=== PATIENT | female | born 1960 ===

== ENCOUNTER 2019-08-30 12:39 | Emergency (ER) | payer SELFPAY ==
--- NOTE | 2019-08-30 14:32 | UC ---
Hand/Wrist HPI - HPI Summary HPI Summary: 59-year-old female who was here today complaining of right proximal humerus and right wrist pain after falling on her way into work on August 10. She did not seek treatment because she has no health insurance and states it's a Worker's Compensation injury. He states she has been "babying it", but she has had continued right upper arm pain and right wrist pain. She denies hitting her head and denies any neck pain. She landed on her outstretched palms. - History Of Current Complaint Chief Complaint: UCUpperExtremity Stated Complaint: ARM INJURY Time Seen by Provider: 08/30/19 14:21 Hx Obtained From: Patient ?: No Onset/Duration: Sudden Onset Severity Initially: Moderate Severity Currently: Moderate Pain Intensity: 8 Character Of Pain: Dull, Aching Aggravating Factor(s): Movement, Lifting, Flexion, Extension Alleviating Factor(s): Rest Associated Signs And Symptoms: Positive: Negative Related History: Occupational Injury - States this happened while she was on her way into work on August 10. - Allergies/Home Medications Allergies/Adverse Reactions: Allergies Allergy/AdvReac Type Severity Reaction Status Date / Time Unable to Assess Allergy Verified 08/30/19 13:36 Home Medications: Home Medications Amitriptyline HCl 75 mg PO BEDTIME 08/30/19 [History Confirmed 08/30/19] Aspirin 81 mg PO 08/30/19 [History] Atorvastatin* [Lipitor*] 80 mg PO 1700 08/30/19 [History Confirmed 08/30/19] Clopidogrel TAB* [Plavix TAB*] 75 mg PO DAILY 08/30/19 [History Confirmed ] Levothyroxine TAB* [Synthroid TAB*] 75 mcg PO 0800 08/30/19 [History Confirmed 08/30/19] Metoprolol Succinate [Kapspargo Sprinkle] 25 mg PO BID 08/30/19 [History Confirmed 08/30/19] Montelukast Sodium TAB* [Singulair TAB*] 10 mg PO BEDTIME 08/30/19 [History Confirmed 08/30/19] PMH/Surg Hx/FS Hx/Imm Hx Previously Healthy: Yes - Surgical History Surgical History: Yes Surgery Procedure, Year, and Place: rt glands removed from neck, lt knee orthroscopy, nasal septum repair. - Family History Known Family History: Positive: Non-Contributory - Social History Alcohol Use: Weekly Substance Use Type: None Smoking Status (MU): Never Smoked Tobacco Review of Systems All Other Systems Reviewed And Are Negative: Yes Musculoskeletal: Positive: Decreased ROM - Patient states over the past 2 weeks since he injury she has had increased range of motion but still has limited range of motion of her right upper arm. She complains of pain to the proximal humerus and the right wrist. Is Patient Immunocompromised?: No Physical Exam Triage Information Reviewed: Yes Appearance: Well-Appearing, No Pain Distress, Well-Nourished Vital Signs: Initial Vital Signs Temp 99.1 F 08/30/19 13:31 Pulse 81 08/30/19 13:31 Resp 18 08/30/19 13:31 BP 103/66 08/30/19 13:31 Pulse Ox 100 08/30/19 13:31 Vital Signs Reviewed: Yes Musculoskeletal: Positive: Strength Intact, ROM Limited @ - Patient still has limited range of motion of her right arm but she is able to almost completely lift it up. She has pain with flexion extension of her right wrist and it is mildly swollen. Good peripheral pulses neuro sensation and capillary refill. The right shoulder is nontender on palpation. Neurological: Positive: Alert, Muscle Tone Normal Psychological Exam: Normal Skin Exam: Normal Hand/Wrist Course/Dx - Course Course Of Treatment: Right humerus x-ray: Negative Right Wrist x-ray: Negative I gave the patient a right cock-up splint for comfort. She is to follow-up with the orthopedist if she continues to have pain or no improvement in symptoms. She may continue to take Tylenol alternating with Motrin for pain. - Differential Dx/Diagnosis Provider Diagnosis: Right wrist sprain, Injury of humerus Discharge ED - Sign-Out/Discharge Documenting (check all that apply): Patient Departure All imaging exams completed and their final reports reviewed: Yes - Discharge Plan Condition: Good Disposition: HOME Patient Education Materials: Wrist Sprain (ED) Referrals: [facility] [Outside] Juanita Bhatt MD [Medical Doctor] - No Primary Care Phys,NOPCP [Primary Care Provider] - Additional Instructions: May apply heat to the sore area, take Tylenol every 4 hours for pain or Motrin every 8 hours. Follow-up with the orthopedist if no improvement in 4 or 5 days. - Billing Disposition and Condition Condition: GOOD Disposition: Home - Attestation Statements Provider Attestation: Per institutional requirements, I have reviewed the chart, however, I was not consulted specifically or made aware of this patient by the midlevel provider. I did not personally evaluate, interact with , or disposition this patient.
== END 2019-08-30 15:13 | disposition home or self-care (01) ==
LOC: UCEAST 12:39
DX: M25.531 Pain in right wrist (principal); S49.91XA Unspecified injury of right shoulder and upper arm, initial encounter; Z79.82 Long term (current) use of aspirin; W19.XXXA Unspecified fall, initial encounter; Y92.9 Unspecified place or not applicable
CPT/HCPCS: 99212; G0463